=== PATIENT | female | born 1950 | race Caucasian/White ===

== ENCOUNTER 2018-12-27 18:51 | Emergency (ER) | payer OTHER ==
[2018-12-27] MEDS ORDERED: FENTANYL CITR 100 MCG/2 ML ONE (19:44)
--- NOTE | 2018-12-27 19:46 | RAD REPORT ---
EXAM DESCRIPTION: RAD - Ankle Right 2 View - 12/27/2018 7:22 pm CLINICAL HISTORY: ABNORMALITY Fall, pain COMPARISON: <Comparisons> FINDINGS: Fracture dislocation of the right ankle is present. Moderately displaced lateral malleolar fracture seen.
--- NOTE | 2018-12-27 20:46 | RAD REPORT ---
EXAM DESCRIPTION: RAD - Hip Right 2 View - 12/27/2018 8:36 pm CLINICAL HISTORY: PAIN Fall, pain COMPARISON: No comparisons FINDINGS: Mild arthritic changes affect the right hip. No acute fracture or dislocation seen.
--- NOTE | 2018-12-27 20:48 | RAD REPORT ---
EXAM DESCRIPTION: RAD - Lumbar Spine 3 Views - 12/27/2018 8:28 pm CLINICAL HISTORY: PAIN Radiculopathy COMPARISON: <Comparisons> FINDINGS: Vertebral body heights appear maintained. No compression fracture noted. Mild degenerative anterolisthesis at the L4-5 noted. Degenerative change with small endplate osteophyte at L5-S1. IMPRESSION: No acute lumbar spine abnormality detected.
--- NOTE | 2018-12-27 20:51 | RAD REPORT ---
EXAM DESCRIPTION: RAD - Knee Right 2 View - 12/27/2018 8:29 pm CLINICAL HISTORY: PAIN Trauma, pain COMPARISON: <Comparisons> FINDINGS: Tricompartmental arthritic changes are present. A small joint effusion is suspected. No ac shwetha fracture demonstrated.
--- NOTE | 2018-12-27 20:54 | RAD REPORT ---
EXAM DESCRIPTION: RAD - Ankle Right 2 View - 12/27/2018 8:36 pm CLINICAL HISTORY: POST REDUCTION COMPARISON: No comparisonsNo comparisonsAnkle Right 2 View dated 12/27/2018Ankle Right 2 View dated ; Knee Right 2 View dated 12/27/2018 FINDINGS: The previously noted right ankle fracture dislocation has been reduced. Oblique moderately displaced lateral malleolar fracture noted. Medial clear space widening is seen compatible with synd esmotic disruption.
--- NOTE | 2018-12-27 21:13 | EDPHYS ---
Physician Documentation [facility] Name: Felicia Farias Age: 68 yrs Sex: Female : 1950 Arrival Date: 12/27/2018 Time: 18:54 Bed 7 Private MD: ED Physician Maged Chan HPI: 12/27 21:08 This 68 yrs old Female presents to ER via EMS with complaints of Ankle Injury.ma2 21:08 The patient presents with decreased range of motion, a deformity, an injury. Onset: The ma2 symptoms/episode began/occurred suddenly, 1 hour(s) ago. Context: The problem was sustained at home, tripped. Associated signs and symptoms: Pertinent positives: swelling, Pertinent negatives: fever, numbness, tingling, warmth. Severity of symptoms: At their worst the symptoms were moderate, in the emergency department the symptoms are unchanged. The patient has not experienced similar symptoms in the past. Historical: - Allergies: 18:59 No Known Allergies; sg - PMHx: 18:59 COPD; Diabetes - NIDDM; GERD; Hernia; Fibromyalgia; sg - Immunization history:: Adult Immunizations unknown. - Social history:: Smoking status: Patient/guardian denies using tobacco, Patient/guardian denies using alcohol, street drugs, The patient lives with family. - Immunization history: Last tetanus immunization: unknown. - Ebola Screening: : Patient negative for fever greater than or equal to 101.5 degrees Fahrenheit, and additional compatible Ebola Virus Disease symptoms Patient denies exposure to infectious person Patient denies travel to an Ebola-affected area in the 21 days before illness onset No symptoms or risks identified at this time. - Family history:: not pertinent. ROS: 21:08 Constitutional: Negative for fever, chills, and weight loss. ma2 21:08 MS/extremity: Positive for contusion, pain, Negative for decreased range of motion, rash, tingling. 21:08 All other systems are negative. Exam: 21:08 Constitutional: This is a well developed, well nourished patient who is awake, alert, ma2 and in no acute distress. ENT: Nares patent. No nasal discharge, no septal abnormalities noted. Tympanic membranes are normal and external auditory canals are clear. Oropharynx with no redness, swelling, or masses, exudates, or evidence of obstruction, uvula midline. Mucous membranes moist. Chest/axilla: Normal chest wall appearance and motion. Nontender with no deformity. No lesions are appreciated. Cardiovascular: Regular rate and rhythm with a normal S1 and S2. No gallops, murmurs, or rubs. Normal PMI, no JVD. No pulse deficits. Respiratory: Lungs have equal breath sounds bilaterally, clear to auscultation and percussion. No rales, rhonchi or wheezes noted. No increased work of breathing, no retractions or nasal flaring. Abdomen/GI: Soft, non-tender, with normal bowel sounds. No distension or tympany. No guarding or rebound. No evidence of tenderness throughout. Skin: Warm, dry with normal turgor. Normal color with no rashes, no lesions, and no evidence of cellulitis. Neuro: Awake and alert, GCS 15, oriented to person, place, time, and situation. Cranial nerves II-XII grossly intact. Motor strength 5/5 in all extremities. Sensory grossly intact. Cerebellar exam normal. Normal gait. 21:08 Musculoskeletal/extremity: Extremities: ROM: limited passive range of motion, right ankle, Circulation is intact in all extremities. Sensation intact. Compartment Syndrome exam of affected extremity: is normal. has displaced fracture of right ankle sensation and pulses intact . Vital Signs: 18:57 BP 162 / 98; Pulse 80; Resp 17; Temp 97.4; Pulse Ox 95% on R/A; Pain 5/10; sg 19:54 BP 140 / 88; Pulse 78; Resp 19 S; Pulse Ox 95% on 2 lpm NC; jd3 20:00 BP 133 / 78; Pulse 80; Resp 19 S; Pulse Ox 95% on 2 lpm NC; jd3 21:51 BP 168 / 88; Pulse 78; Resp 19 S; Pulse Ox 97% on R/A; jd3 Rule Coma Score: 18:57 Eye Response: spontaneous(4). Verbal Response: oriented(5). Motor Response: obeys sg commands(6). Total: 15. 19:54 Eye Response: spontaneous(4). Verbal Response: oriented(5). Motor Response: obeys jd3 commands(6). Total: 15. Trauma Score (Adult): 18:57 Eye Response: spontaneous(1); Verbal Response: oriented(1); Motor Response: obeys sg commands(2); Systolic BP: > 89 mm Hg(4); Respiratory Rate: 10 to 29 per min(4); Suresh Score: 15; Trauma Score: 12 19:54 Eye Response: spontaneous(1); Verbal Response: oriented(1); Motor Response: obeys jd3 commands(2); Systolic BP: > 89 mm Hg(4); Respiratory Rate: 10 to 29 per min(4); Rule Score: 15; Trauma Score: 12 Procedures: 21:08 Splinting: Splint applied to right leg using Orthoglass splint, applied by post ma2 reduction film - reveals normal alignment, Examined by me, post splint application: neurovascular intact, 2+ distal pulses palpable, brisk capillary refill noted, Patient tolerated well. Reduction: of the right ankle, using traction, manipulation, Immobilized with Patient tolerated well. Post reduction film - reveals normal alignment. MDM: 19:03 Patient medically screened. ma2 21:08 Differential diagnosis: fracture, sprain, foreign body, arthritis. Data reviewed: vital ma2 signs, nurses notes. Counseling: I had a detailed discussion with the patient and/or guardian regarding: the historical points, exam findings, and any diagnostic results supporting the discharge/admit diagnosis, the presence of at least one elevated blood pressure reading (>120/80) during this emergency department visit, the need for outpatient follow up. Response to treatment: the patient's symptoms have markedly improved after treatment. ED course: has susi fracture of right ankle, closed neurovascular intact . 12/27 19:17 Order name: Ankle Right 2 View; Complete Time: 20:16 EDMS 12/27 19:31 Order name: Lumbar Spine (3 Views) XRAY; Complete Time: 21:07 ma2 12/27 19:31 Order name: Hip Right 2 View XRAY; Complete Time: 21:07 ma2 12/27 19:31 Order name: Knee Right 2 View XRAY; Complete Time: 21:07 ma2 12/27 20:16 Order name: Splint - Ankle: Posterior: with stirrup; Complete Time: 21:25 ma2 12/27 20:18 Order name: Ankle Right 2 View; Complete Time: 21:07 EDMS Administered Medications: 19:33 Drug: fentaNYL (PF) 100 mcg Route: IVP; Site: right hand; jd3 20:30 Follow up: Response: No adverse reaction; Pain is decreased jd3 21:33 Drug: [place] 10 mg-325 mg 1 tabs Route: PO; jd3 21:50 Follow up: Response: Medication administered at discharge. jd3 Disposition: 12/27/18 21:12 Discharged to Home. Impression: Fracture of lower leg, including ankle. - Condition is Stable. - Discharge Instructions: Ankle Fracture. - Prescriptions for Tylenol- Codeine #3 300-30 mg Oral Tablet - take 2 tablet by ORAL route every 6 hours As needed; 30 tablet. - Medication Reconciliation Form, Thank You Letter, Antibiotic Education, Prescription Opioid Use form. - Follow up: Arturo Topete MD; When: Tomorrow; Reason: Continuance of care. - Notes: no weight bearing on right ankle Signatures: Dispatcher [employer] EDMS Nathan Garsia RN RN sg Davies, Jonathon, RN RN jd3 Alzahri, Mohammad, MD MD ma2 Corrections: (The following items were deleted from the chart) 19:34 19:33 Ankle Right 3 View+RAD.RAD.BRZ ordered. EDMS EDMS 19:35 19:33 Foot Right 3 View+RAD.RAD.BRZ ordered. EDMS EDMS 19:36 19:33 Ankle Right 2 View+RAD.RAD.BRZ ordered. EDMS EDMS 21:52 21:12 12/27/2018 21:12 Discharged to Home. Impression: Fracture of lower leg, including jd3 ankle. Condition is Stable. Forms are Medication Reconciliation Form, Thank You Letter, Antibiotic Education, Prescription Opioid Use. Follow up: Arturo Topete; When: Tomorrow; Reason: Continuance of care. ma2
--- NOTE | 2018-12-27 21:13 | ER ---
Nurse's Notes [facility] Name: Felicia Farias Age: 68 yrs Sex: Female : 1950 Arrival Date: 12/27/2018 Time: 18:54 Bed 7 Private MD: Diagnosis: Fracture of lower leg, including ankle Presentation: 12/27 18:55 Presenting complaint: EMS states: Slipped and fell while walking on residential front sg porch, complains of pain to the buttocks, right knee, and pain in the right ankle, EMS report a fracture with angulation of the right foot, denies head injury, denies LOC. Transition of care: patient was not received from another setting of care. Onset of symptoms was December 27, 2018. Risk Assessment: Do you want to hurt yourself or someone else? Patient reports no desire to harm self or others. Initial Sepsis Screen: Does the patient meet any 2 criteria? No. Patient's initial sepsis screen is negative. Does the patient have a suspected source of infection? No. Patient's initial sepsis screen is negative. Care prior to arrival: IV initiated. 20 GA, in the left antecubital area. Care prior to arrival: Medication(s) given: zofran 4 mg, IV initiated. 22 GA, in the right hand, Oxygen administered. via nasal cannula. Care prior to arrival: Medication(s) given: 100 mcg Fentanyl. Care prior to arrival: Splint applied. Mechanism of Injury: Fall from standing position. 18:55 Method Of Arrival: EMS: [facility] 18:55 Acuity: MELISSA 3 18:55 Trauma event details: Injury occurred in the [facility], Injury occurred: at home. Injury occurred: December 27, 2018. 19:54 Mechanism of Injury: Fall from standing position. jd3 Trauma Activation: Alert Physician: ED Physician; Name: Dustin; Notified At: 19:00; Arrived At: 19:00 Physician: General Surgeon; Name: n/a; Notified At: 19:00; Arrived At: Physician: Radiology; Name: Meron; Notified At: 19:00; Arrived At: 19:00 Physician: Respiratory; Name: n/a; Notified At: 19:00; Arrived At: Physician: Lab; Name: n/a; Notified At: 19:00; Arrived At: Historical: - Allergies: 18:59 No Known Allergies; sg - PMHx: 18:59 COPD; Diabetes - NIDDM; GERD; Hernia; Fibromyalgia; sg - Immunization history:: Adult Immunizations unknown. - Social history:: Smoking status: Patient/guardian denies using tobacco, Patient/guardian denies using alcohol, street drugs, The patient lives with family. - Immunization history: Last tetanus immunization: unknown. - Ebola Screening: : Patient negative for fever greater than or equal to 101.5 degrees Fahrenheit, and additional compatible Ebola Virus Disease symptoms Patient denies exposure to infectious person Patient denies travel to an Ebola-affected area in the 21 days before illness onset No symptoms or risks identified at this time. - Family history:: not pertinent. Screenin:55 Abuse screen: Denies threats or abuse. Denies injuries from another. Tuberculosis sg screening: No symptoms or risk factors identified. 19:53 Nutritional screening: No deficits noted. Fall Risk Fall in past 12 months (25 points). jd3 Ambulatory Aid- None/Bed Rest/Nurse Assist (0 pts). Gait- Impaired (20 pts.). Mental Status- Oriented to own ability (0 pts). Total Moser Fall Scale indicates High Risk Score (45 or more points). Fall prevention measures have been instituted. Side Rails Up X 2 Placed Close to Nursing Station Frequent Obs/Assessments Occuring Family Present and informed to notify staff if the need to leave the bedside. Primary Survey: 18:55 NO uncontrolled hemorrhage observed. A: The patient is alert. Airway: patent, Oxygen sg via nasal cannula at 2 liters per minute. Breathing/Chest: Respiratory pattern: regular, Respiratory effort: spontaneous, unlabored, Breath sounds: clear, Chest inspection: symmetrical rise and fall of the chest. Circulation: Heart tones present. Pulses: palpable right popliteal artery and right dorsalis pedis artery. Skin temperature: warm. Disability Alert. Exposure/Environment: There is no evidence of uncontrolled external bleeding. Obvious injury(ies) are noted at this time: Right Ankle A warming method has been applied: A warm blanket has been provided to the patient. 19:53 Reassessment Airway Airway Patent Oxygen Nasal cannula Breathing/Chest Respiratory jd3 pattern Regular Respiratory effort Spontaneous Unlabored Breath sounds Clear Chest inspection Symmetrical Circulation Pulses Palpable Color [place] Temperature Warm Disability Alert. Secondary Survey: 18:55 HEENT: Throat: is clear. Gastrointestinal: Abdomen is soft, obese. : No signs and/or sg symptoms were reported regarding the genitourinary system. Musculoskeletal: Range of motion: limited in right ankle Swelling present in right ankle. Assessment: 18:55 General: Appears in no apparent distress. well groomed, well developed, well nourished, sg Behavior is calm, cooperative, appropriate for age. Pain: Complains of pain in right ankle Quality of pain is described as tender, throbbing. Neuro: Level of Consciousness is awake, alert, obeys commands, Oriented to person, place, time, Speech is normal, Facial symmetry appears normal. EENT: No signs and/or symptoms were reported regarding the EENT system. Cardiovascular: Patient's skin is warm and dry. Chest pain is denied. Respiratory: Airway is patent Respiratory effort is even, unlabored, Respiratory pattern is regular, symmetrical. GI: Abdomen is round non-distended. : No signs and/or symptoms were reported regarding the genitourinary system. Derm: Skin is pink, warm \T\ dry. Musculoskeletal: Range of motion: limited in right ankle Swelling present in right ankle. 19:30 General: Appears uncomfortable, Behavior is calm, cooperative, appropriate for age. jd3 Pain: Complains of pain in right ankle Quality of pain is described as tender, throbbing. Neuro: Level of Consciousness is awake, alert, obeys commands, Oriented to person, place, time, situation. Cardiovascular: Denies chest pain, Capillary refill < 3 seconds Patient's skin is warm and dry. Respiratory: Airway is patent Respiratory effort is even, unlabored, Respiratory pattern is regular, symmetrical. GI: No signs and/or symptoms were reported involving the gastrointestinal system. : No signs and/or symptoms were reported regarding the genitourinary system. EENT: No signs and/or symptoms were reported regarding the EENT system. Derm: Skin is intact, Skin is dry, Skin is normal, Skin temperature is warm. Musculoskeletal: Range of motion: limited in right ankle Bony deformity noted of right ankle Swelling present in right ankle. 20:45 Reassessment: Patient appears in no apparent distress at this time. Patient and/or jd3 family updated on plan of care and expected duration. Pain level reassessed. Patient is alert, oriented x 3, equal unlabored respirations, skin warm/dry/pink. Patient states feeling better. 21:47 Reassessment: Patient appears in no apparent distress at this time. Patient and/or jd3 family updated on plan of care and expected duration. Pain level reassessed. Patient is alert, oriented x 3, equal unlabored respirations, skin warm/dry/pink. pt assisted to vehicle with wheelchair. pt reported understanding of discharge instructions. Patient states feeling better. Vital Signs: 18:57 BP 162 / 98; Pulse 80; Resp 17; Temp 97.4; Pulse Ox 95% on R/A; Pain 5/10; sg 19:54 BP 140 / 88; Pulse 78; Resp 19 S; Pulse Ox 95% on 2 lpm NC; jd3 20:00 BP 133 / 78; Pulse 80; Resp 19 S; Pulse Ox 95% on 2 lpm NC; jd3 21:51 BP 168 / 88; Pulse 78; Resp 19 S; Pulse Ox 97% on R/A; jd3 Suresh Coma Score: 18:57 Eye Response: spontaneous(4). Verbal Response: oriented(5). Motor Response: obeys sg commands(6). Total: 15. 19:54 Eye Response: spontaneous(4). Verbal Response: oriented(5). Motor Response: obeys jd3 commands(6). Total: 15. Trauma Score (Adult): 18:57 Eye Response: spontaneous(1); Verbal Response: oriented(1); Motor Response: obeys sg commands(2); Systolic BP: > 89 mm Hg(4); Respiratory Rate: 10 to 29 per min(4); Suresh Score: 15; Trauma Score: 12 19:54 Eye Response: spontaneous(1); Verbal Response: oriented(1); Motor Response: obeys jd3 commands(2); Systolic BP: > 89 mm Hg(4); Respiratory Rate: 10 to 29 per min(4); [place] Score: 15; Trauma Score: 12 ED Course: 18:54 Patient arrived in ED. sg 18:55 Patient has correct armband on for positive identification. Bed in low position. Call sg light in reach. Side rails up X2. Pulse ox on. NIBP on. Warm blanket given. Head of bed elevated. 18:55 Maintain EMS IV. Dressing intact. Site clean \T\ dry. 20 G Left Forearm, 22 G Rjght Hand. sg Patient maintains SpO2 saturation greater than 95% on room air. Thermoregulation: warm blanket given to patient. 18:57 Triage completed. sg 18:57 Arm band placed on. sg 19:03 Maged Chan MD is Attending Physician. ma2 19:23 Ankle Right 2 View In Process Unspecified. EDMS 19:35 Assist provider with reduction of right ankle using manipulation, Set up for procedure. jd3 Performed by Maged Chan MD Patient tolerated well. 19:51 Keegan Wilson, RACH is Primary Nurse. jd3 20:28 Lumbar Spine (3 Views) XRAY In Process Unspecified. EDMS 20:28 Hip Right 2 View XRAY In Process Unspecified. EDMS 20:28 Knee Right 2 View XRAY In Process Unspecified. EDMS 20:29 Ankle Right 2 View In Process Unspecified. EDMS 21:12 Arturo Topete MD is Referral Physician. ma2 21:49 IV discontinued, intact, bleeding controlled, No redness/swelling at site. Pressure jd3 dressing applied. Administered Medications: 19:33 Drug: fentaNYL (PF) 100 mcg Route: IVP; Site: right hand; jd3 20:30 Follow up: Response: No adverse reaction; Pain is decreased jd3 21:33 Drug: [place] 10 mg-325 mg 1 tabs Route: PO; jd3 21:50 Follow up: Response: Medication administered at discharge. jd3 Intake: 18:57 PO: 0ml; Total: 0ml. sg Outcome: 21:12 Discharge ordered by . ma2 21:49 Discharged to home via wheelchair, with family. jd3 21:49 Condition: stable 21:49 Discharge instructions given to patient, family, Instructed on discharge instructions, follow up and referral plans. medication usage, Demonstrated understanding of instructions, follow-up care, medications, Prescriptions given X 1. 21:49 Patient's length of stay in the Emergency Department was greater than 2 hours. waiting j for results.Patient's length of stay extended due to 21:52 Patient left the ED. jd3 Signatures: Dispatcher [employer] EDMS Nathan Garsia, RN RN sg Keegan Wilson RN RN jd3 Maged Chan MD MD ma2 Corrections: (The following items were deleted from the chart) 21:49 21:47 Reassessment: Patient appears in no apparent distress at this time. Patient jd3 and/or family updated on plan of care and expected duration. Pain level reassessed. Patient is alert, oriented x 3, equal unlabored respirations, skin warm/dry/pink. Patient states feeling better. jd3
[2018-12-27] MEDS ORDERED: HYDROCODONE/APAP 10/325 TAB ONE (21:43)
== END 2018-12-27 21:52 | disposition home or self-care (01) ==
LOC: ER 18:51
PROC: 0SSFXZZ Reposition Right Ankle Joint, External Approach (ICD-10-PCS; principal; 2018-12-27)
DX: S82.61XA Displaced fracture of lateral malleolus of right fibula, initial encounter for closed fracture (principal); S93.04XA Dislocation of right ankle joint, initial encounter; W01.0XXA Fall on same level from slipping, tripping and stumbling without subsequent striking against object, initial encounter; Y92.009 Unspecified place in unspecified non-institutional (private) residence as the place of occurrence of the external cause; J44.9 Chronic obstructive pulmonary disease, unspecified; E11.9 Type 2 diabetes mellitus without complications; K21.9 Gastro-esophageal reflux disease without esophagitis
CPT/HCPCS: 72100; 73502; 73560; 73600 ×2; 27840; J3010; 96374; 99285

== ENCOUNTER 2019-02-20 08:55 | Observation (INO) | payer OTHER ==
--- OUTSIDE RECORDS SUMMARY | 2019-02-20 20:44 | XMS REPORT | Summary of Care ---
:1950 Author Organization [facility] Address [address] [place] [id number] Care Team Providers Name Role Phone Susi Kelley MD Primary Care Provider Reason for Visit Auth/Cert Status Reason Specialty Diagnoses / Procedures Referred By Contact Referred To Contact [facility] [address] [place] [address] Encounter Details Date Type Department Care Team Description 01/04/2019 Hospital Encounter [facility] Arturo Cagle, [address] [place]arsh[place] [address] [address] [place] [address] Allergies No Known Allergiesdocumented as of this encounter (statuses as of 01/27/2019) Medications Medication Sig Dispensed Refills Start Date End Date Status buPROPion SR 150 mg SR tablet 0 11/07/2018 Active celecoxib 200 mg capsule 0 12/16/2018 Active fluticasone propionate 50 0 10/04/2018 Active mcg/actuation nasal spray BREO ELLIPTA 100-25 mcg/dose DsDv 0 12/08/2018 Active gabapentin 300 mg capsule 0 10/26/2018 Active levoFLOXacin 500 mg tablet 0 10/04/2018 Active lisinopril-hydrochlorothiazide 20-25 0 12/05/2018 Active mg per tablet metFORMIN 500 mg tablet 0 12/16/2018 Active pantoprazole 40 mg EC tablet 0 11/16/2018 Active LYRICA 75 mg capsule 0 10/05/2018 Active sucralfate 1 gram tablet 0 11/25/2018 Active venlafaxine XR 150 mg 24 hr capsule 0 12/16/2018 Active documented as of this encounter (statuses as of 01/27/2019) Active Problems No known active problemsdocumented as of this encounter (statuses as of 2018) Social History Tobacco Use Types Packs/Day Years Used Date Never Assessed Sex Assigned at Date Recorded Not on file Job Start Date Occupation Industry Not on file Not on file Not on file Travel History Travel Start Travel End No recent travel history available. documented as of this encounter Last Filed Vital Signs Not on filedocumented in this encounter Plan of Treatment Date Type Specialty Care Team Description 02/21/2019 Office Visit Orthopedic Surgery Navjot Vargas S, PAC [address] [place] [address] Health Maintenance Due Date Last Done Comments HEPATITIS C (HCV) SCREEN 1950 DTaP,Tdap,and Td Vaccines (1 - Tdap) 1971 COLONOSCOPY 2002 Zoster Recombinant Vaccine (SHINGRIX) (1 of 2) 2002 Medicare Wellness Visit 2017 PNEUMOCOCCAL VACCINES 65+ (1 of 2 - PCV13) 2017 MAMMOGRAM 08/04/2018 08/04/2017 LUNG CANCER SCREEN: Recommended for age 55-80 with 30 02/02/2019 02/02/2018 + pack year history INFLUENZA VACCINE 03/05/2019 Osteoporosis Screening Completed 08/04/2017 documented as of this encounter Results Not on filedocumented in this encounter Insurance Payer Benefit Plan / Subscriber ID Effective Phone Address Type Group Dates MEDICARE MEDICARE PART xxxxxxxxxxx 2017-Pres [phone] Medicare A & B ent [id number] [place] [address] COMMERCIAL COMMERCIAL [id number] 2017-Pre HMO/PPO/POS NON-CONTRACT NON-CONTRACT sent GENERIC GENERIC documented as of this encounter
--- OUTSIDE RECORDS SUMMARY | 2019-02-20 20:44 | XMS REPORT ---
:1950 [facility] Address [address] [place] [address] [address] [place] [address] Care Team Providers Name Role Phone Unavailable Unavailable Unavailable Problems This patient has no known problems. Allergies, Adverse Reactions, Alerts This patient has no known allergies or adverse reactions. Medications This patient has no known medications.
[2019-02-20] MEDS ORDERED: NA CHLORIDE 0.9% 500 ML ONE (21:28)
[2019-02-20 21:51] LABS: Absolute Lymphocytes (CBC) 2.5 K/uL (0.7-4.9); Basophils % 0.8 % (0-1.3)
[2019-02-20 21:52] LABS: Protime INR 1.05
[2019-02-20 21:54] LABS: Hematocrit 41.3 % (36.0-45.0); Lymphocytes % 18.1 % (15.3-44.8); MPV 8.7 fL (7.6-11.3); RBC Red Blood Cell Count 4.44 M/uL (3.86-4.86)
[2019-02-20 22:04] LABS: ALT/SGPT 23 U/L (12-78); AST/SGOT 18 U/L (15-37); Albumin 3.7 g/dL (3.4-5.0); Alkaline Phosphatase 103 U/L (45-117); BUN Blood Urea Nitrogen 21 mg/dL (7-18); Bicarbonate 24 mmol/L (21-32); Bilirubin Direct < 0.1 mg/dL (0-0.2); Bilirubin Total 0.4 mg/dL (0.2-1.0); Glucose Level 94 mg/dL (74-106); Magnesium 1.7 mg/dL (1.8-2.4); NT PRO-BNP 35 pg/mL (<125); Potassium 3.8 mmol/L (3.5-5.1); Sodium Level 136 mmol/L (136-145); Troponin (Emerg Dept Use Only) < 0.02 ng/mL (0.0-0.045)
--- NOTE | 2019-02-20 22:10 | RAD REPORT ---
EXAM DESCRIPTION: US - Extrem Venous W Compress Jarrod - 02/20/2019 9:54 pm CLINICAL HISTORY: pain right leg, ankle surgery 7 weeks ago Bilateral leg edema and swelling. COMPARISON: Upper Lower Extrem Art Multi dated 03/31/2017No comparisonsNo comparisons TECHNIQUE: Real-time sonographic interrogation of the left and right lower extremity deep venous sys tems was performed. FINDINGS: Normal compressibility, flow augmentation, phasic flow and spontaneous flow is identified in both the left and right lower extremity deep venous systems. IMPRESSION: No sonographic evidence of left or right lower extremity deep venous thrombosis.
--- NOTE | 2019-02-20 22:20 | RAD REPORT ---
EXAM DESCRIPTION: RAD - Chest Single View - 02/20/2019 10:07 pm CLINICAL HISTORY: syncope Chest pain. COMPARISON: No comparisons FINDINGS: Portable technique limits examination quality. The lungs are grossly clear. The heart is normal in size. No displaced fractures. Cervical hardware p late. IMPRESSION: No acute intrathoracic process suspected.
--- NOTE | 2019-02-20 22:21 | RAD REPORT ---
EXAM DESCRIPTION: RAD - Shoulder Right 2 View - 02/20/2019 10:07 pm CLINICAL HISTORY: PAIN COMPARISON: No comparisons FINDINGS: Advanced AC joint degenerative changes are present. High-riding humeral head is noted comp atible with underline rotator cuff pathology. No acute fracture or dislocation.
[2019-02-20] MEDS ORDERED: MAGNESIUM SULFATE 1 gm IVPB 1 GM/100 ML BAG IV ONE (22:56)
--- NOTE | 2019-02-21 00:48 | ER ---
Nurse's Notes [facility] Name: Felicia Farias Age: 68 yrs Sex: Female : 1950 Arrival Date: 02/20/2019 Time: 20:49 Bed 28 Private MD: Diagnosis: Syncope and collapse Presentation: 02/20 20:49 Presenting complaint: EMS states: SHE COMPLAINED OF SOB AFTER TAKING A SHOWER. SHE GOT rv NAUSEA AND VOMITED. SHE IS ON THE PORCH COLD, CLAMMY AND DIAPHORETIC. SHE HAS HISTORY OF COPD. AFTER GIVING IV FLUID AND BREATHING TREATMENT, PATIENT FEELS A LOT BETTER. DENIES ANY CHEST PAIN. Transition of care: patient was not received from another setting of care. Onset of symptoms was February 20, 2019 at 17:30. Risk Assessment: Do you want to hurt yourself or someone else? Patient reports no desire to harm self or others. Initial Sepsis Screen: Does the patient meet any 2 criteria? No. Patient's initial sepsis screen is negative. Does the patient have a suspected source of infection? No. Patient's initial sepsis screen is negative. Care prior to arrival: None. 20:49 Method Of Arrival: EMS: [facility] rv 20:49 Acuity: MELISSA 3 rv Historical: - Allergies: 20:55 No Known Allergies; rv - Home Meds: 20:55 Bupropion Oral [Active]; gabapentin oral oral [Active]; Lisinopril Oral [Active]; rv Metformin Oral [Active]; pantoprazole oral oral [Active]; sucralfate Oral [Active]; - PMHx: 20:55 COPD; Diabetes - NIDDM; Fibromyalgia; GERD; Hernia; rv - PSHx: 20:55 Hysterectomy; Cholecystectomy; ANKLE SURGERY; rv - Immunization history:: Adult Immunizations up to date. - Social history:: Smoking status: Patient/guardian denies using tobacco, never smoked. - Ebola Screening: : No symptoms or risks identified at this time. Screenin:56 Abuse screen: Denies threats or abuse. Denies injuries from another. Nutritional rv screening: No deficits noted. Tuberculosis screening: No symptoms or risk factors identified. Fall Risk None identified. Assessment: 20:55 General: Appears in no apparent distress. comfortable, Behavior is calm, cooperative. rv Pain: Denies pain. Neuro: Level of Consciousness is awake, alert, obeys commands, Oriented to person, place, time, situation. Cardiovascular: Patient's skin is warm and dry. Respiratory: Airway is patent. GI: No signs and/or symptoms were reported involving the gastrointestinal system. : No signs and/or symptoms were reported regarding the genitourinary system. EENT: No signs and/or symptoms were reported regarding the EENT system. Derm: Skin is intact. Musculoskeletal: No signs and/or symptoms reported regarding the musculoskeletal system. 20:57 Cardiovascular: Rhythm is sinus rhythm with unifocal PVCs. rv 23:00 Reassessment: Patient appears in no apparent distress at this time. Patient and/or rv family updated on plan of care and expected duration. Pain level reassessed. Patient is alert, oriented x 3, equal unlabored respirations, skin warm/dry/pink. 02/21 02:00 Reassessment: Patient appears in no apparent distress at this time. Patient and/or rv family updated on plan of care and expected duration. Pain level reassessed. Patient is alert, oriented x 3, equal unlabored respirations, skin warm/dry/pink. 02:45 Reassessment: Patient appears in no apparent distress at this time. Patient is alert, aa1 oriented x 3, equal unlabored respirations, skin warm/dry/pink. Pt admitted to 4th floor at this time. Vital Signs: 02/20 20:51 BP 115 / 77; Pulse 85; Resp 17; Temp 97.8; Pulse Ox 96% on R/A; Weight 90.72 kg; Height rv 5 ft. 3 in. (160.02 cm); Pain 0/10; 21:30 BP 100 / 64; Pulse 84; Resp 15; Pulse Ox 95% on R/A; rv 22:00 BP 126 / 85; Pulse 78; Resp 13; Pulse Ox 96% on R/A; rv 22:30 BP 107 / 70; Pulse 71; Resp 20; Pulse Ox 96% on R/A; rv 23:30 BP 91 / 58; Pulse 78; Resp 13; Pulse Ox 96% on R/A; rv 02/21 01:00 BP 103 / 65; Pulse 69; Resp 14; Pulse Ox 96% on R/A; rv 02:00 BP 109 / 72; Pulse 71; Resp 13; Pulse Ox 97% on R/A; rv 02/20 20:51 Body Mass Index 35.43 (90.72 kg, 160.02 cm) rv ED Course: 02/20 20:49 Patient arrived in ED. rv 20:51 Triage completed. rv 20:52 Humberto Pantoja PA is PHCP. cp 20:52 Humberto Guzman MD is Attending Physician. cp 20:56 Patient has correct armband on for positive identification. Placed in gown. Bed in low rv position. Call light in reach. Side rails up X 1. ekg monitor tech on. Pulse ox on. NIBP on. 20:56 Arm band placed on left wrist. Patient placed in the treatment room, on a stretcher, on rv ekg monitor, on pulse oximetry, Patient notified of wait time. EKG completed in triage. Results shown to MD. 20:57 Ajit Hernandez, RACH is Primary Nurse. rv 21:53 US Extremity Venous W Compression Jarrod In Process Unspecified. EDMS 22:07 XRAY Chest (1 view) In Process Unspecified. EDMS 22:08 XRAY Shoulder RIGHT 2 view In Process Unspecified. EDMS 02/21 00:04 CT Head Brain wo Cont In Process Unspecified. EDMS 00:40 Yves Isaacs DO is Hospitalizing Provider. cp 02:37 No provider procedures requiring assistance completed. Patient admitted, IV remains in aa1 place. Administered Medications: 02/20 21:26 CANCELLED (Physician Discretion): NS 0.9% 1000 ml IV at 125 ml/hr continuous cp 21:39 Drug: NS 0.9% 500 ml Route: IV; Rate: 500 ml/hr; Site: right hand; rv 02/21 02:17 Follow up: IV Status: Completed infusion rv 02/20 23:01 Drug: Magnesium Sulfate 1 grams Route: IVPB; Infused Over: 1 hrs; Site: right hand; rv 02/21 02:17 Follow up: IV Status: Completed infusion rv 02:45 Drug: NS 0.9% 500 ml Route: IV; Rate: 500 ml/hr; Site: left hand; aa1 02:50 Follow up: IV Status: Infusion continued upon admission aa1 Outcome: 00:41 Decision to Hospitalize by Provider. cp 02:45 Admitted to Tele accompanied by tech, family with patient, via wheelchair, with chart, aa1 Report called to RACH Chaves 02:45 Condition: stable 02:45 Instructed on the need for admit, Demonstrated understanding of instructions. 02:50 Patient left the ED. aa1 Signatures: Dispatcher [employer] EDMS Dianna Felder RN RN aa1 Humberto Pantoja PA PA cp Vicente, Ronaldo, RN RN rv Corrections: (The following items were deleted from the chart) 06:43 06:42 Patient left the ED. aa1 aa1
--- NOTE | 2019-02-21 00:51 | EDPHYS ---
Physician Documentation [facility] Name: Felicia Farias Age: 68 yrs Sex: Female : 1950 Arrival Date: 02/20/2019 Time: 20:49 Bed 28 Private MD: ED Physician Humberto Guzman HPI: 02/20 21:30 This 68 yrs old Female presents to ER via EMS with complaints of syncope. cp 21:30 The patient has experienced syncope, lost consciousness. cp 21:30 Onset: The symptoms/episode began/occurred just prior to arrival. Duration: The patient cp has had multiple episodes, that last an unknown period of time. 21:30 Associated injury: The patient did not suffer any apparent associated injury. cp Associated signs and symptoms: Pertinent positives: nausea, shortness of breath, vomiting, Pertinent negatives: chest pain, diaphoresis, diarrhea, headache, lightheadedness, weakness. Current symptoms: Currently, the patient is not experiencing any symptoms, the patient feels back to baseline. Historical: - Allergies: 20:55 No Known Allergies; rv - Home Meds: 20:55 Bupropion Oral [Active]; gabapentin oral oral [Active]; Lisinopril Oral [Active]; rv Metformin Oral [Active]; pantoprazole oral oral [Active]; sucralfate Oral [Active]; - PMHx: 20:55 COPD; Diabetes - NIDDM; Fibromyalgia; GERD; Hernia; rv - PSHx: 20:55 Hysterectomy; Cholecystectomy; ANKLE SURGERY; rv - Immunization history:: Adult Immunizations up to date. - Social history:: Smoking status: Patient/guardian denies using tobacco, never smoked. - Ebola Screening: : No symptoms or risks identified at this time. ROS: 21:35 Constitutional: Negative for body aches, chills, fever, poor PO intake. cp 21:35 Eyes: Negative for injury, pain, redness, and discharge. cp 21:35 ENT: Negative for drainage from ear(s), ear pain, sore throat, difficulty swallowing, difficulty handling secretions. 21:35 Neck: Negative for pain with movement, pain at rest, stiffness, tenderness. 21:35 Cardiovascular: Negative for chest pain, edema, palpitations. 21:35 Respiratory: Positive for shortness of breath, Negative for cough, wheezing. 21:35 Abdomen/GI: Positive for nausea and vomiting, Negative for diarrhea, constipation, anorexia, black/tarry stool, rectal bleeding. 21:35 Back: Negative for pain at rest, pain with movement. 21:35 MS/extremity: Positive for pain, of the right shoulder, Negative for injury or acute deformity, decreased range of motion. 21:35 Neuro: Positive for syncope, Negative for altered mental status, headache, weakness. 21:35 All other systems are negative. Exam: 21:05 ECG was reviewed by the Attending Physician. cp 21:40 Constitutional: The patient appears in no acute distress, alert, awake, cp non-diaphoretic, non-toxic, well developed, well nourished. 21:40 Head/Face: Normocephalic, atraumatic. cp 21:40 Eyes: Periorbital structures: appear normal, Pupils: equal, round, and reactive to cp light and accomodation, Extraocular movements: intact throughout, Conjunctiva: normal, no exudate, no injection, Sclera: no appreciated abnormality, Lids and lashes: appear normal, bilaterally. 21:40 ENT: External ear(s): are unremarkable, Ear canal(s): are normal, clear, TM's: cp dullness, bilaterally, Nose: is normal, Mouth: is normal, Posterior pharynx: is normal, airway is patent, no erythema, no exudate. 21:40 Neck: ROM/movement: is normal, is supple, without pain, no range of motions limitations, no nuchal rigidity. 21:40 Chest/axilla: Inspection: normal, Palpation: is normal, no crepitus, no tenderness. 21:40 Cardiovascular: Rate: normal, Rhythm: regular, Edema: is not appreciated, JVD: is not appreciated. 21:40 Respiratory: the patient does not display signs of respiratory distress, Respirations: normal, no use of accessory muscles, no retractions, no splinting, no tachypnea, labored breathing, is not present, Breath sounds: are clear throughout, no decreased breath sounds, no stridor, no wheezing. 21:40 Abdomen/GI: Inspection: abdomen appears normal, Palpation: abdomen is soft and non-tender, in all quadrants. 21:40 Back: pain, is absent, ROM is normal. 21:40 Musculoskeletal/extremity: Calves: are tender, on right. 21:40 Skin: cellulitis, is not appreciated, no rash present. 21:40 Neuro: Orientation: to person, place \T\ time. Mentation: is normal, Cerebellar function: is grossly normal, Motor: moves all fours, strength is normal, Sensation: is normal. Vital Signs: 20:51 BP 115 / 77; Pulse 85; Resp 17; Temp 97.8; Pulse Ox 96% on R/A; Weight 90.72 kg; Height rv 5 ft. 3 in. (160.02 cm); Pain 0/10; 21:30 BP 100 / 64; Pulse 84; Resp 15; Pulse Ox 95% on R/A; rv 22:00 BP 126 / 85; Pulse 78; Resp 13; Pulse Ox 96% on R/A; rv 22:30 BP 107 / 70; Pulse 71; Resp 20; Pulse Ox 96% on R/A; rv 23:30 BP 91 / 58; Pulse 78; Resp 13; Pulse Ox 96% on R/A; rv 02/21 01:00 BP 103 / 65; Pulse 69; Resp 14; Pulse Ox 96% on R/A; rv 02:00 BP 109 / 72; Pulse 71; Resp 13; Pulse Ox 97% on R/A; rv 02/20 20:51 Body Mass Index 35.43 (90.72 kg, 160.02 cm) rv MDM: 02/20 21:02 Patient medically screened. 02/21 00:15 Data reviewed: vital signs, nurses notes, lab test result(s), EKG, radiologic studies, cp CT scan, plain films. 00:15 Test interpretation: by ED physician or midlevel provider: ECG, plain radiologic cp studies. Counseling: I had a detailed discussion with the patient and/or guardian regarding: the historical points, exam findings, and any diagnostic results supporting the discharge/admit diagnosis, lab results, radiology results, the need for further work-up and treatment in the hospital. Response to treatment: the patient's symptoms have markedly improved after treatment. 02/20 21:25 Order name: Basic Metabolic Panel; Complete Time: 22:05 cp 02/20 22:06 Interpretation: Normal except: BUN 21; CRE 1.48; GFR 35. cp 02/20 21:25 Order name: CBC with Diff; Complete Time: 22:05 cp 02/20 22:06 Interpretation: Normal except: WBC 14.0; NEUT A 10.1. cp 02/20 21:25 Order name: LFT's; Complete Time: 22:05 cp 02/20 21:25 Order name: Magnesium; Complete Time: 22:05 cp 02/20 21:25 Order name: NT PRO-BNP; Complete Time: 22:05 cp 02/20 21:25 Order name: PT-INR; Complete Time: 22:05 cp 02/20 21:25 Order name: Troponin (emerg Dept Use Only); Complete Time: 22:05 cp 02/20 21:25 Order name: XRAY Chest (1 view); Complete Time: 22:51 cp 02/20 21:25 Order name: US Extremity Venous W Compression Jarrod; Complete Time: 22:51 cp 02/20 21:54 Order name: XRAY Shoulder RIGHT 2 view; Complete Time: 22:51 cp 02/20 22:07 Order name: D-Dimer; Complete Time: 22:51 cp 02/20 23:03 Order name: CT Head Brain wo Cont cp 02/21 04:06 Order name: Troponin I EDMS 02/20 21:25 Order name: EKG; Complete Time: 21:26 cp 02/20 21:25 Order name: Cardiac monitoring; Complete Time: 21:40 cp 02/20 21:25 Order name: EKG - Nurse/Tech; Complete Time: 21:40 cp 02/20 21:25 Order name: IV Saline Lock; Complete Time: 21:40 cp 02/20 21:25 Order name: Labs collected and sent; Complete Time: 21:40 cp 02/20 21:25 Order name: O2 Per Protocol; Complete Time: 21:41 cp 02/20 21:25 Order name: O2 Sat Monitoring; Complete Time: 21:41 cp EC/19 21:05 Rate is 82 beats/min. Rhythm is regular. NE interval is normal. QRS interval is normal. cp QT interval is normal. Interpreted by me. Reviewed by me. Administered Medications: 21:26 CANCELLED (Physician Discretion): NS 0.9% 1000 ml IV at 125 ml/hr continuous cp 21:39 Drug: NS 0.9% 500 ml Route: IV; Rate: 500 ml/hr; Site: right hand; rv 02/21 02:17 Follow up: IV Status: Completed infusion rv 02/20 23:01 Drug: Magnesium Sulfate 1 grams Route: IVPB; Infused Over: 1 hrs; Site: right hand; rv 02/21 02:17 Follow up: IV Status: Completed infusion rv 02:45 Drug: NS 0.9% 500 ml Route: IV; Rate: 500 ml/hr; Site: left hand; aa1 02:50 Follow up: IV Status: Infusion continued upon admission aa1 Disposition: 07:10 Co-signature as Attending Physician, Humberto Guzman MD I agree with the assessment and [facility] plan of care. Disposition: 02/21/19 00:41 Hospitalization ordered by Yves Isaacs for Observation. Preliminary diagnosis is Syncope and collapse. - Bed requested for Telemetry/MedSurg (observation). - Status is Observation. aa1 - Condition is Stable. - Problem is new. - Symptoms have improved. UTI on Admission? No Signatures: Dispatcher [employer] EDCT Sidra Flores RN RN Dianna Felder RN RN aa1 Humberto Guzman MD MD cha Page, Corey, PA PA cp Ajit Hernandez RN RN rv Corrections: (The following items were deleted from the chart) 02/20 21:26 21:25 NS 0.9% 1000 ml IV at 125 ml/hr continuous ordered. cp cp 22:06 22:06 Normal except: WBC 14.0. cp cp 22:21 22:08 Head Brain Wo Cont+CT.RAD.BRZ ordered. EDCT EDCT 02/21 02:28 00:41 Hospitalization Ordered by Yves Isaacs DO for Observation. Preliminary mw diagnosis is Syncope and collapse. Bed requested for Telemetry/MedSurg (observation). Status is Observation. Condition is Stable. Problem is new. Symptoms have improved. UTI on Admission? No. cp 06:42 02:28 02/21/2019 00:41 Hospitalization Ordered by Yves Isaacs DO for Observation. aa1 Preliminary diagnosis is Syncope and collapse. Bed requested for Telemetry/MedSurg (observation). Status is Observation. Condition is Stable. Problem is new. Symptoms have improved. UTI on Admission? No. mw
[2019-02-21] MEDS ORDERED: ONDANSETRON 4 MG/2 ML VIAL IV PRN (02:25)
[2019-02-21] MEDS ORDERED: D50W 25 GM/50 ML SYRINGE IV PRN (02:28)
[2019-02-21] MEDS ORDERED: GLUCAGON 1 MG/VIAL IM PRN (02:28)
--- NOTE | 2019-02-21 02:34 | P.HP ---
Certification for Inpatient With expected LOS: <2 Midnights Practitioner: I am a practitioner with admitting privileges, knowledge of patient current condition, hospital course, and medical plan of care. Services: Services provided to patient in accordance with Admission requirements found in Title 42 Section 412.3 of the Code of Federal Regulations Patient History Date of Service: 02/21/19 Reason for admission: Syncope and collapse History of Present Illness: 68 y/o old woman with a history of hypertension, fibromyalgia, history of anxiety and depression was brought to the emergency department because she passed out 3 times. The daughter witnessed this syncopal episodes. According to the daughter the patient was sitting in a patio and noted to pass out 3 times. Each episode lasted a couple of minutes, no seizures witnessed, no postictal state. The patient was noted to have slumped in her chair and did not fall. She reports recent episodes of feeling lightheaded and dizzy occasionally. Patient takes lisinopril for hypertension. She also takes Cymbalta, Lyrica and gabapentin for fibromyalgia. Of note, she had an ankle surgery done about 7 weeks ago and states that she has pain on ambulation. She endorsed reduced oral intake and access food and drink due to pain with ambulation. In the ED, patient blood pressure noted to be soft, with systolic in the 90s. Her D-dimer is elevated. Her creatinine level was moderately elevated to 1.48 within the GFR of 35. Venous Doppler of the lower extremities negative for DVT. EKG unremarkable. Patient is placed on observation for syncope rule out. Allergies No Known Allergies Allergy (Verified 02/21/19 04:31) Home medications list reviewed: Yes Home Medications: Bupropion HCl [Bupropion HCl Sr] 150 mg PO BID 02/21/19 Celecoxib 200 mg PO DAILY 02/21/19 Fluticasone [Flonase 50MCG Nasal Grand Chain*] 1 spray CLARICE BID 02/21/19 Fluticasone/Vilanterol [Breo Ellipta 100-25 Mcg INH] 1 puff IH BID 02/21/19 Gabapentin 300 mg PO BID 02/21/19 Lisinopril/Hydrochlorothiazide [Zestoretic 20-25 mg Tablet] 1 each PO DAILY Metformin HCl 500 mg PO BID 02/21/19 Pantoprazole Sodium [Protonix] 40 mg PO DAILY 02/21/19 Venlafaxine HCl [Effexor Xr] 150 mg PO DAILY 02/21/19 - Past Medical/Surgical History Diabetic: No Past Medical History: Patient denies medical history -: Fibromyalgia -: Hypertension -: Ankle surgery - Family History Mother -: Lung disease, Diabetes - Social History Smoking Status: Never smoker Alcohol use: No CD- Drugs: No Place of Residence: Home Review of Systems Lymphatics: Other Other: General: No fever, no malaise, no unintentional weight loss. Eyes: No eye discharge, Respiratory: No cough, no shortness of breath. CVS: No chest pain, no palpitation. GI: No abdominal pain, no nausea no vomit, no constipation, no diarrhea. Genitourinary: No dysuria, no urinary frequency, no incontinence, no hematuria. Musculoskeletal: No gait instability. Neurology: No headache, no asymmetric, weakness, no problem with swallowing. Except last documented, all other systems reviewed and negative. Physical Examination - Physical Exam General: Alert, In no apparent distress, Oriented x3 HEENT: Atraumatic, Normocephalic, PERRLA, Mucous membr. moist/pink, EOMI Neck: Supple, 2+ carotid pulse no bruit, JVD not distended, No Thyromegaly Respiratory: Clear to auscultation bilaterally, Normal air movement Cardiovascular: No edema, Normal pulses, Regular rate/rhythm, Normal S1 S2, No murmurs Capillary refill: <2 Seconds Gastrointestinal: Normal bowel sounds, Soft and benign, No tenderness Musculoskeletal: No clubbing, No swelling, No erythema, No tenderness Integumentary: No rashes, No erythema Neurological: Normal gait, Normal speech, Normal strength at 5/5 x4 extr, Normal affect Lymphatics: No axilla or inguinal lymphadenopathy - Studies Laboratory Data (last 24 hrs) 02/20/19 21:30: PT 12.4, INR 1.05 02/20/19 21:30: WBC 14.0 H, Hgb 13.8, Hct 41.3, Plt Count 367 02/20/19 21:30: Sodium 136, Potassium 3.8, BUN 21 H, Creatinine 1.48 H, Glucose 94, Magnesium 1.7 L, Total Bilirubin 0.4, AST 18, ALT 23, Alkaline Phosphatase 103 Imagings Data: Chest x-ray: No acute intrathoracic process suspected. EKG: Normal sinus rhythm with PVCs. Assessment and Plan - Problems (Diagnosis) (1) Syncope and collapse Current Visit: Yes Status: Acute (2) Hypertension Current Visit: Yes Status: Acute Qualifiers: Hypertension type: essential hypertension Qualified Code(s): I10 - Essential (primary) hypertension (3) Acute renal failure Current Visit: Yes Status: Acute (4) Elevated d-dimer Current Visit: Yes Status: Acute - Plan Placed under observation in telemetry. Cardiac monitoring Trend troponin. Syncopal workup with carotid duplex and echocardiogram. Hydrate with IV normal saline monitor renal function for improvement. CT of thorax to rule out pulmonary embolism once renal function has improved with IV hydration. Hold antihypertensives. Hold Cymbalta Check orthostatics vitals. Discharge Plan: Home Plan to discharge in: 24 Hours - Advance Directives Does patient have a Living Will: No Does patient have a Durable POA for Healthcare: No - Code Status/Comfort Care Code Status Assessed: Yes Code Status: Full Code Time Spent Managing Pts Care (In Minutes): 60
[2019-02-21] MEDS ORDERED: NA CHLORIDE 0.9% 500 ML ONE (02:42)
[2019-02-21] MEDS ORDERED: NA CHLORIDE 0.9% 1,000 ML IV SCH (03:00)
[2019-02-21 05:08] VITALS: BMI 35.5
[2019-02-21] MEDS: INSULIN -REGULAR HUMAN 50 UNIT/0.5 ML ML SQ SCH ×2 (07:30→11:30)
[2019-02-21 08:09] LABS: Urine Appearance CLEAR; Urine Bilirubin NEGATIVE (NEG); Urine Blood NEGATIVE (NEG); Urine Color YELLOW; Urine Glucose NEGATIVE (NEG); Urine Protein NEGATIVE (NEG); Urine Specific Gravity <=1.005 (1.005-1.030); Urine Urobilinogen 0.2 mg/dL (0.2-1.0); Urine pH 6.5 (5.0-7.0)
[2019-02-21 08:21] LABS: Urine Microscopic Reflex NO UMIC
[2019-02-21 08:36] VITALS: O2SAT 98
--- NOTE | 2019-02-21 09:46 | RAD REPORT ---
EXAM DESCRIPTION: CT head without IV contrast CLINICAL HISTORY: SYNCOPE TECHNIQUE: Multiple axial CT images of the brain were performed followed by sagittal and coronal rec onstructed images. The CT study is performed according to ALARA (as low as reasonably achievable) or ALARA/IMAGE GENTLY, with automatic adjustment of mA and/or kV according to patient size. Performed on: 02/20/2019 at 11:44 PM COMPARISON: None. FINDINGS: There is no evidence of mass, acute mass effect or midline shift. There are no acute extra -axial fluid collections. There is no evidence of acute intracranial hemorrhage. Incidentally noted , there appears to be a partially empty sella turcica. The cerebral sulci and ventricles are normal in size and configuration. There is a punctate calcifica tion along the inferior aspect of the fourth ventricle which may represent choroid plexus. There are scattered areas of decreased attenuation within the subcortical and periventricular white m atter most likely due to mild chronic microangiopathy. There is no significant mucosal thickening of the paranasal sinuses. The mastoid air cells are clear. The orbital contents are grossly unremarkable. No acute osseous abnormalities are identified. No focal soft tissue abnormalities are identified. IMPRESSION: 1. There is no evidence of acute intracranial pathology. 2. Mild chronic microangiopathy. Electronically signed by: Kiana Pollard DO 02/21/2019 12:09 AM CDT Due to temporary technical issues with the PACS/Fluency reporting system, reports are being signed by the in house radiologist as a courtesy to ensure prompt reporting. The interpreting radiologist is f ully responsible for the content of the report.
--- NOTE | 2019-02-21 12:22 | EKG ---
Test Date: 2019-02-20 Test Time: 20:57:58 Dry Can Tender: AZALEAT MEASUREMENT RESULTS: Intervals: Rate: 82 DE: 138 QRSD: 92 QT: 392 QTc: 457 [place]: P: 52 DE: 138 QRS: 25 T: 66 INTERPRETIVE STATEMENTS: Sinus rhythm with frequent premature ventricular complexes Otherwise normal ECG No previous ECG available for comparison Electronically Signed On 02-21-19 12:20:32 CDT by Brain Valerio
[2019-02-21 12:59] VITALS: BP 111/55; TEMP 98.6
--- NOTE | 2019-02-21 13:38 | CON ---
Date of Consultation: 02/21/2019 Reason For Consultation: Syncope. History Of Present Illness: Ms. Farias is 68, has multiple past medical history including COPD, diabe jenn, fibromyalgia, gastroesophageal reflux disease, hernia surgery in the past, and history of anxiet y and depression. She takes many medications including Neurontin, inhalers, lisinopril, Wellbutrin, Effexor, metformin and Protonix. She had an episode that was described by her as she was taking a sh ower and she was feeling very tired and weak. She had been limping. She has had right foot surgery 7 weeks ago. She became very diaphoretic, nauseated and fainted. No trauma. Denied PND, orthopnea, pedal edema, palpitation. She denied any chest pain. Workup so far showed magnesium 1.7, creatinin e 1.48, GFR of 35. Her white count is 14,000. D-dimer is 579. Her EKG is nonspecific. Chest x-ray is negative. Allergies: NEGATIVE. Review of Systems: Negative. Social History: Negative. Family History: Negative. Past Medical History: Listed earlier. Medications: Listed earlier. Physical Examination: General: She is pleasant, in no acute distress, asymptomatic. Vital Signs: Blood pressure is normal sinus rhythm. Weight is 204 pounds. HEENT: Negative. Neck: Supple. No bruit. Chest: Clear to auscultation and percussion. Cardiac: Revealed a regular rhythm and rate. No murmurs, gallops, or rubs. Abdomen: Obese, but benign. Extremities: Revealed no clubbing, cyanosis, or edema. Diagnostic Data: As stated earlier. Impression And Plan: 1.Syncope secondary to orthostatic hypotension secondary to lisinopril and her polypharmacy. 2.She is obviously dehydrated. Her creatinine is elevated. Her GFR is low. Her magnesium is low. Her white count is 14,000, may indicate some infection of some kind, possibly viral. I suggest gent le hydration. Echocardiogram is pending. She has had negative cardiac workup in the past by Dr. Sacha cutler in [place]. I do not think we need to do any extensive cardiac workup other than the echo test normal. I think she can go home, stay well hydrated, may be hold her lisinopril for 2 days. Her ot her problems including chronic obstructive pulmonary disease, diabetes, fibromyalgia, gastroesophagea l reflux disease, anxiety, and depression seem to be stable at this point. ODILON/NEL Voice ID: [id number] Report ID: [id number]
[2019-02-21] MEDS ORDERED: FLUTICASONE 50MCG NASAL SPRAY NAS SCH (14:30)
--- NOTE | 2019-02-21 16:07 | RAD REPORT ---
EXAM DESCRIPTION: US - CP - 02/21/2019 3:51 pm CLINICAL HISTORY: Syncope COMPARISON: None. TECHNIQUE: Real-time sonographic evaluation of both carotid systems was performed. Medina scale and Do ppler interrogation were performed with waveform tracing bilaterally. FINDINGS: Normal high resistance waveforms are noted in both external carotid arteries. The common c arotid arteries and internal carotid arteries show normal low resistance waveforms. No significant plaque formation is seen. Peak systolic and end diastolic velocity values and the ICA/ CCA ratios are in the non-hemodynamically significant range. Antegrade flow seen in both vertebral arteries. Velocity values and ratios were recorded and are retained in the patient's imaging records. IMPRESSION: No significant atherosclerotic changes noted. No evidence of a hemodynamically significant stenosis.
--- NOTE | 2019-02-21 16:33 | ECHO ---
HEIGHT: 5 ft 3.5 in WEIGHT: 204 lb 0 oz DATE OF STUDY: 02/21/[address]: Humberto Pantoja PAC 2-DIMENSIONAL: YES M.MODE: YES DOPPLER: YES COLOR FLOW: YES TDS: YES PORTABLE: DEFINITY: BUBBLE STUDY: DIAGNOSIS: SYNCOPE CARDIAC HISTORY: CATHERIZATION: NO SURGERY: NO PROSTHETIC VALVE: NO PACEMAKER: NO MEASUREMENTS (cm) DIASTOLIC (NORMALS) SYSTOLIC (NORMALS) IVSd 1.0 (0.6-1.2) LA Diam 3.6 (1.9-4.0) LVEF 72% LVIDd 3.1 (3.5-5.7) LVIDs 1.8 (2.0-3.5) %FS 40% LVPWd 1.1 (0.6-1.2) Ao Diam 2.7 (2.0-3.7) 2 DIMENSIONAL ASSESSMENT: RIGHT ATRIUM: NORMAL LEFT ATRIUM: NORMAL RIGHT VENTRICLE: NORMAL LEFT VENTRICLE: NORMAL TRICUSPID VALVE: NORMAL MITRAL VALVE: NORMAL PULMONIC VALVE: NORMAL AORTIC VALVE: NORMAL PERICARDIAL EFFUSION: NONE AORTIC ROOT: NORMAL LEFT VENTRICULAR WALL MOTION: NORMAL DOPPLER/COLOR FLOW: NORMAL COMMENTS: NORMAL LEFT VENTRICULAR SIZE AND FUNCTION. NO WALL MOTION ABNORMALITY. NO AORITC STENOSIS. TECHNOLOGIST: KIMBERLY BOWEN
[2019-02-21] MEDS ORDERED: METFORMIN HCL 500 MG TAB PO SCH (17:00)
[2019-02-21] MEDS ORDERED: Fluticasone/Vilanterol [Breo Ellipta 100-25 Mcg Inh] IH SCH (21:00)
[2019-02-21] MEDS ORDERED: BUPROPRION HCL S.R. 150MG TAB PO SCH (21:00)
[2019-02-21] MEDS ORDERED: GABAPENTIN 300 MG CAP PO SCH (21:00)
--- NOTE | 2019-02-22 03:42 | DS ---
Date of Discharge: 02/21/2019 Consultants: Dr. Acuña with Cardiology. Discharge Diagnoses: 1.Syncope. 2.Essential hypertension. 3.Acute kidney injury. 4.Elevated D-dimer. 5.Obesity, body mass index of 35.6. 6.Fibromyalgia. 7.Status post recent ankle surgery. Hospital Course: Patient is a 68-year-old female with hypertension, fibromyalgia, anxiety, depressio n with polypharmacy, comes in with episode of syncope after shower. Patient did not have any witness ed seizure or postictal state. Patient was admitted for further evaluation. Her workup revealed vaishali vated creatinine indicating dehydration, acute kidney injury. Patient does take lisinopril and is on celecoxib for pain. Those medications were held. She was started on IV fluids. Her D-dimer was mi ldly elevated and patient recently had ankle surgery and a white count of 14,000. The ankle did not appear to be infected. There was no pain or redness. Patient had Doppler study of the bilateral low er extremities, which did not show any DVT. Head CT scan was negative for any acute changes. Gerrilos irene was seen by Cardiology, Dr. Acuña did not recommend any significant cardiac workup. Patient does see Dr. Shrestha as an outpatient. Overall patient did well. Orthostatic vital signs were checked. She will need to hold her lisinopril for the next couple of days. Continue with hydration. Patient will need to come back and see her primary care physician and to slowly wean off some of her medicat ions, which may be causing part of her symptoms. Patient will need to hold her celecoxib due to her kidney injury. Patient is on Effexor and bupropion, may need to consolidate those medications. Over all patient did well. She was able to ambulate without difficulty. She was counseled regarding her obesity. Patient was then cleared for discharge and was sent home in a stable condition. Activity: As tolerated with fall precautions. Medications: As per medication reconciliation list. Followup: Follow up with primary care physician in 2-3 days. Return to ER for worsening condition. Follow up with primary tavern car attendant, Dr. Shrestha in a couple of weeks. Diet: Heart healthy. Physical Examination: GENERAL: Awake, alert, and oriented x3, not in any acute distress. Elderly female, obese. CV: S1-S2. No murmurs. RESPIRATORY: Moving air well bilaterally. No wheezing. GASTROINTESTINAL: Abdomen is soft, nontender, nondistended. Positive bowel sounds. EXTREMITIES: No clubbing, cyanosis, or edema. NEUROLOGIC: Nonfocal. Code Status: Full. SA/MODL Voice ID: [id number] Report ID: [id number]
[2019-02-22] MEDS ORDERED: PANTOPRAZOLE 40MG TABLET PO SCH (09:00)
[2019-02-22] MEDS ORDERED: VENLAFAXINE HCL XR 75 MG CAP PO SCH (09:00)
[2019-02-22] MEDS ORDERED: CELECOXIB 100 MG CAPSULE PO SCH (09:00)
== END 2019-02-21 16:51 | disposition home or self-care (01) ==
LOC: ER 20:41 → ERHOLD 02-21 02:26 → 4TH 02-21 02:38
PROVIDERS: ADMIT Internal Medicine; ATTEND Family Medicine
DX: R55 Syncope and collapse (principal); I10 Essential (primary) hypertension; N17.9 Acute kidney failure, unspecified; R79.89 Other specified abnormal findings of blood chemistry; E66.9 Obesity, unspecified; Z68.35 Body mass index [BMI] 35.0-35.9, adult; M79.7 Fibromyalgia; F41.8 Other specified anxiety disorders; E86.0 Dehydration; Z98.890 Other specified postprocedural states
CPT/HCPCS: 96365; 96361; 93005; 93306; 85025; 80048; 36415; 83735; 85610; 82962 ×2; 85379; 80076; 81003; 84484 ×3; 83880; 70450; 71045; 73030; 93880; 93970; 99285; 96366; J3475; J7030; J2405; G0378 ×2